=== PATIENT | male | born 1990 | race African-American/Black ===

== ENCOUNTER 2021-05-02 11:57 | Emergency (ER) | payer SELFPAY ==
[2021-05-02] MEDS ORDERED: Ibuprofen 800 MG TAB ONE (12:46)
[2021-05-02] MEDS ORDERED: Ondansetron ODT 4 MG TAB ONE (12:46)
[2021-05-02 18:18] LABS: SARS-CoV-2 PCR by NAA Not Detected (NotDetected)
== END 2021-05-02 14:59 | disposition home or self-care (01) ==
LOC: ERS 11:57
DX: J10.1 Influenza due to other identified influenza virus with other respiratory manifestations (principal); Z20.822 Contact with and (suspected) exposure to COVID-19; J45.909 Unspecified asthma, uncomplicated; F17.290 Nicotine dependence, other tobacco product, uncomplicated
CPT/HCPCS: 71045; 87804; 99283; Q0162; U0003; U0005